=== PATIENT | male | born 1965 | race Caucasian/White ===

== ENCOUNTER 2017-05-25 16:43 | Inpatient (IN) | payer OTHER ==
[2017-05-25 18:30] VITALS: BMI 24.3
--- NOTE | 2017-05-25 19:50 | HP ---
COWS - Scale Resting Pulse: 0= [place] 80 or Below Sweatin= Chills/Flushing Restless Observation: 1= Difficult to Sit Still Pupil Size: 1= Pupils >than Normal Bone or Joint Aches: 2= Severe Diffuse Aches Runny Nose/ Eye Tearin= Runny Nose/Eyes GI Upset > 30mins: 2= Nausea/Diarrhea Tremor Observation: 2= Slight Tremor Visible Yawning Observation: 1= 1-2x During Session Anxiety or Irritability: 2=Irritable/Anxious Goose Flesh Skin: 0=Smooth Skin COWS Score: 14 Admission [facility] Chief Complaint: WITHDRAWAL SX Allergies/Adverse Reactions: Allergies Allergy/AdvReac Type Severity Reaction Status Date / Time risperidone [From Risperdal] Allergy Verified 05/25/17 19:47 History of Present Illness: 52 YEARS OLD MALE WITH LONG HISTORY OF OPIATE NICOTINE COCAINE DEPENDENCE HAS POSITIVE PPD, NEUROPATHY, HYPERTENSION AND SCHIZOPHRENIA IS ADMITTED TO DETOX Exam Limitations: No Limitations - Ebola screening Have you traveled outside of the country in the last 21 days: No (N) Have you had contact with anyone from an Ebola affected area: No Have you been sick,other than usual withdrawal symptoms: No Do you have a fever: No - Review of Systems Constitutional: Loss of Appetite, Changes in sleep, Unintentional Wgt. Loss, Unexplained wgt Loss EENT: reports: No Symptoms Reported Respiratory: reports: No Symptoms reported Cardiac: reports: No Symptoms Reported GI: reports: Nausea, Poor Appetite, Poor Fluid Intake, Indigestion, Abdominal cramping : reports: No Symptoms Reported Musculoskeletal: reports: Back Pain, Joint Pain, Muscle Pain, Neck Pain Integumentary: reports: Rash (LEGS + ARMS) Neuro: reports: Tremors Endocrine: reports: No Symptoms Reported Hematology: reports: No Symptoms Reported Psychiatric: reports: Judgement Intact, Orientated x3, Anxious, Depressed Other Systems: Reviewed and Negative Patient History - Patient Medical History Hx Anemia: No Hx Asthma: No Hx Chronic Obstructive Pulmonary Disease (COPD): No Hx Cancer: No Hx Cardiac Disorders: No Hx Congestive Heart Failure: No Hx Hypertension: Yes Hx Hypercholesterolemia: No Hx Pacemaker: No HX Cerebrovascular Accident: No Hx Seizures: No Hx Dementia: No Hx Diabetes: No Hx Gastrointestinal Disorders: Yes Hx Liver Disease: No Hx Genitourinary Disorders: No Hx Sexually Transmitted Disorders: No Hx Renal Disease (ESRD): No Hx Thyroid Disease: No Hx Human Immunodeficiency Virus (HIV): No Hx Hepatitis C: No Hx Depression: No Hx Suicide Attempt: No Hx Bipolar Disorder: No Hx Schizophrenia: Yes - Patient Surgical History Past Surgical History: Yes Hx Orthopedic Surgery: Yes (RIGHT FACIAL FX) Anesthesia Reaction: No - PPD History Previous Implant?: Yes Documented Results: Positive w/o proof Implanted On Prior [facility] Admission?: No PPD to be Administered?: No - Smoking Cessation Smoking history: Current every day smoker Have you smoked in the past 12 months: Yes Aproximately how many cigarettes per day: 20 Cigars Per Day: 0 Hx Chewing Tobacco Use: No Initiated information on smoking cessation: Yes 'Breaking Loose' booklet given: 05/25/17 - Substance & Tx. History Hx Alcohol Use: No Hx Substance Use: Yes Substance Use Type: Cocaine, Heroin Hx Substance Use Treatment: Yes (2006 [facility]) - Substances Abused Heroin Route: Inhalation Frequency: Daily Amount used: 15 BAGS Age of first use: 22 Date of Last Use: 05/25/17 Family Disease History - Family Disease History Family Disease History: Respiratory: Mother, Sister, Other: Father ( LIVER) Admission Physical Exam [facility] - Vital Signs Vital Signs: Vital Signs - 24 hr 05/25/17 18:22 Temperature 97.5 F L Pulse Rate 66 Respiratory 18 Rate Blood Pressure 150/80 - Physical General Appearance: Yes: Appropriately Dressed, Mild Distress, Thin, Tremorous, Irritable, Sweating, Anxious HEENTM: Yes: Hearing grossly Normal, Normal ENT Inspection, Normocephalic, Normal Voice Respiratory: Yes: Chest Non-Tender, Lungs Clear, Normal Breath Sounds, No Respiratory Distress, No Accessory Muscle Use Neck: Yes: Supple, Trachea in good position Breast: Yes: Breasts Symetrical Cardiology: Yes: Regular Rhythm, Regular Rate, S1, S2 Abdominal: Yes: Non Tender, Soft Genitourinary: Yes: Within Normal Limits Back: Yes: Normal Inspection Musculoskeletal: Yes: full range of Motion, Gait Steady, Back pain, Muscle Pain Extremities: Yes: Normal Range of Motion, Non-Tender, Tremors Neurological: Yes: Fully Oriented, Alert, Motor Strength 5/5, Normal Response, Depressed Affect Integumentary: Yes: Warm, Rash Lymphatic: Yes: Within Normal Limits - Diagnostic (1) Opioid dependence with withdrawal Current Visit: Yes Status: Acute (2) Cocaine dependence, uncomplicated Current Visit: Yes Status: Chronic (3) Positive PPD, treated Current Visit: Yes Status: Resolved (4) Nicotine dependence Current Visit: Yes Status: Acute Qualifiers: Nicotine product type: cigarettes Substance use status: in withdrawal Qualified Code(s): F17.213 - Nicotine dependence, cigarettes, with withdrawal (5) Neuropathy Current Visit: Yes Status: Chronic (6) Hypertension Current Visit: Yes Status: Chronic Qualifiers: Hypertension type: essential hypertension Qualified Code(s): I10 - Essential (primary) hypertension (7) Weight loss Current Visit: Yes Status: Acute (8) GERD (gastroesophageal reflux disease) Current Visit: Yes Status: Chronic Qualifiers: Esophagitis presence: without esophagitis Qualified Code(s): K21.9 - Gastro-esophageal reflux disease without esophagitis Cleared for Admission [facility] - Detox or Rehab S Level of Care: Medically Managed Detox Regimen/Protocol: Methadone S Breath Alcohol Content Breath Alcohol Content: 0 Urine Drug Screen - Results Drug Screen Negative: No Urine Drug Screen Results: SANDRA-Cocaine, OPI-Opiates
[2017-05-25] MEDS ORDERED: P-EPHED 60MG/TRIPROLIDI 2.5MG TABLET PO PRN (19:55)
[2017-05-25] MEDS ORDERED: LOPERAMIDE HCL 2 MG CAPSULE PO PRN (19:55)
[2017-05-25] MEDS ORDERED: ACETAMINOPHEN 325 MG TABLET (FP) PO PRN (19:55)
[2017-05-25] MEDS ORDERED: MAGNESIUM HYDROX 2400MG/30ML ORAL SUSPENSION 30 ML CUP PO PRN (19:55)
[2017-05-25] MEDS ORDERED: MENTHOL/PHENOL 1 EACH UD MM PRN (19:55)
[2017-05-25] MEDS ORDERED: MAG HYDROX/AL HYDROX/SIMETH 30 ML UNIT-DOSE CUP PO PRN (19:55)
[2017-05-25] MEDS ORDERED: MAGNESIUM CITRATE 300 ML BOTTLE PO PRN (19:55)
[2017-05-25] MEDS ORDERED: NICOTINE POLACRILEX 4 MG GUM BUC PRN (19:55)
[2017-05-25] MEDS ORDERED: guaiFENesin/D-METHORPHAN HB 10 ML UNIT-DOSE CUPS PO PRN (19:55)
[2017-05-25] MEDS ORDERED: diphenhydrAMINE HCL 50 MG CAPSULE PO PRN (19:55)
[2017-05-25] MEDS ORDERED: METHADONE HCL 10 MG TABLET (FOR DETOX USE ONLY) PO ONE ×2 (19:55→23:00)
[2017-05-25] MEDS ORDERED: BACITRACIN 0.9 GM PACKET TP ONE (19:58)
[2017-05-25] MEDS: diazePAM 5 MG TABLET PO PRN (20:42)
[2017-05-25] MEDS: VALSARTAN 160 MG TABLET (UD) PO SCH (20:42)
[2017-05-25] MEDS: THIAMINE HCL 100 MG TABLET (FP) PO SCH (22:17)
[2017-05-25] MEDS: CYCLOBENZAPRINE HCL 10 MG TABLET (FP) PO PRN (22:18)
[2017-05-25] MEDS: GABAPENTIN 300 MG CAPSULE (FP) PO SCH (22:18)
[2017-05-25] MEDS: RANITIDINE HCL 150 MG TABLET (FP) PO SCH (22:18)
[2017-05-25 22:38] LABS: URINE APPEARANCE SLCLOUDY; URINE BILIRUBIN NEGATIVE (NEGATIVE); URINE BLOOD NEGATIVE (NEGATIVE); URINE COLOR YELLOW; URINE GLUCOSE (UA) NEGATIVE (NEGATIVE); URINE KETONE NEGATIVE (NEGATIVE); URINE LEUK ESTERASE NEGATIVE (NEGATIVE); URINE NITRITE NEGATIVE (NEGATIVE); URINE PROTEIN NEGATIVE (NEGATIVE)
[2017-05-26] MEDS: GABAPENTIN 300 MG CAPSULE (FP) PO SCH ×3 (06:27→22:30)
[2017-05-26] MEDS ORDERED: METHADONE HCL 10 MG TABLET (FOR DETOX USE ONLY) PO ONE (10:00)
[2017-05-26] MEDS: ASPIRIN 81 MG CHEWABLE TABLETS PO SCH (10:42)
[2017-05-26] MEDS: PRENATAL VITAMINS W/ FOLIC ACID TABLET (FP) PO SCH (10:42)
[2017-05-26] MEDS: RANITIDINE HCL 150 MG TABLET (FP) PO SCH ×2 (10:42→22:30)
[2017-05-26] MEDS: NICOTINE 21 MG/24 HOURS TOPICAL PATCH TD SCH (10:43)
[2017-05-26 10:59] LABS: MCH 32.7 pg (25.7-33.7); MCHC 33.6 g/dl (32.0-35.9); MEAN CELL VOLUME 97.3 fl (80-96); MEAN PLT VOLUME 10.2 fl (7.5-11.1); PLATELET COUNT 174 K/MM3 (134-434); RDW 14.4 % (11.9-15.9); WHITE BLOOD COUNT 5.1 K/mm3 (4.0-10.0)
[2017-05-26 11:11] LABS: ALBUMIN 3.1 g/dl (3.4-5.0); ALK PHOS 107 U/L (45-117); ANION GAP 7 (8-16); BILIRUBIN,TOTAL 0.2 mg/dL (0.2-1.0); CALCIUM 8.2 mg/dL (8.5-10.1); CO2 31 mmol/L (21-32); CREATININE 0.6 mg/dL (0.7-1.3); GLUCOSE,RANDOM 121 mg/dL (74-106); SGOT/AST 11 U/L (15-37); SGPT/ALT 17 U/L (12-78); TOT PROT 5.6 g/dl (6.4-8.2)
--- NOTE | 2017-05-26 12:05 | PN ---
[facility] COWS - Scale Resting Pulse: 0= [place] 80 or Below Sweatin= Chills/Flushing Restless Observation: 3= Extraneous Movement Pupil Size: 1= Pupils >than Normal Bone or Joint Aches: 2= Severe Diffuse Aches Runny Nose/ Eye Tearin= Runny Nose/Eyes GI Upset > 30mins: 3= Vomiting/Diarrhea Tremor Observation of Outstretched Hands: 2= Slight Tremor Visible Yawning Observation: 1= 1-2x During Session Anxiety or Irritability: 2=Irritable/Anxious Goose Flesh Skin: 0=Smooth Skin COWS Score: 17 S Progress Note (SOAP) Subjective: alert,irritable,anxious,interrupted sleep,pain in the body and back,tremor Objective: 05/26/17 12:02 Vital Signs Temperature 97.3 F L 05/26/17 09:51 Pulse Rate 58 L 05/26/17 09:51 Respiratory Rate 18 05/26/17 09:51 Blood Pressure 104/47 05/26/17 09:51 O2 Sat by Pulse Oximetry (%) ekg nsr pac no chest pain,no sob,no dizziness Laboratory Last Values Sodium 144 mmol/L (136-145) 05/26/17 08:00 Potassium 3.5 mmol/L (3.5-5.1) 05/26/17 08:00 Chloride 106 mmol/L (98-107) 05/26/17 08:00 Carbon Dioxide 31 mmol/L (21-32) 05/26/17 08:00 Anion Gap 7 (8-16) L 05/26/17 08:00 BUN 17 mg/dL (7-18) 05/26/17 08:00 Creatinine 0.6 mg/dL (0.7-1.3) L 05/26/17 08:00 Creat Clearance w eGFR > 60 (>60) 05/26/17 08:00 Random Glucose 121 mg/dL (74-106) H 05/26/17 08:00 Calcium 8.2 mg/dL (8.5-10.1) L 05/26/17 08:00 Total Bilirubin 0.2 mg/dL (0.2-1.0) 05/26/17 08:00 AST 11 U/L (15-37) L 05/26/17 08:00 ALT 17 U/L (12-78) 05/26/17 08:00 Alkaline Phosphatase 107 U/L (45-117) 05/26/17 08:00 Total Protein 5.6 g/dl (6.4-8.2) L 05/26/17 08:00 Albumin 3.1 g/dl (3.4-5.0) L 05/26/17 08:00 Urine Color Yellow 05/25/17 21:45 Urine Appearance Slcloudy 05/25/17 21:45 Urine pH 5.0 (5.0-8.0) 05/25/17 21:45 Ur Specific [place] 1.025 (1.005-1.025) 05/25/17 21:45 Urine Protein Negative (NEGATIVE) 05/25/17 21:45 Urine Glucose (UA) Negative (NEGATIVE) 05/25/17 21:45 Urine Ketones Negative (NEGATIVE) 05/25/17 21:45 Urine Blood Negative (NEGATIVE) 05/25/17 21:45 Urine Nitrite Negative (NEGATIVE) 05/25/17 21:45 Urine Bilirubin Negative (NEGATIVE) 05/25/17 21:45 Urine Urobilinogen 2.0 mg/dL (0.2-1.0) 05/25/17 21:45 Ur Leukocyte Esterase Negative (NEGATIVE) 05/25/17 21:45 labs pending Assessment: 05/26/17 12:04 withdrawal symptom Plan: continue detox,fasting glucose in am initial glucose is 121
[2017-05-26] MEDS: VALSARTAN 160 MG TABLET (UD) PO SCH (12:42)
--- NOTE | 2017-05-26 18:44 | EKG ---
Test Reason : Blood Pressure : / mmHG Vent. Rate : 063 BPM Atrial Rate : 063 BPM P-R Int : 146 ms QRS Dur : 112 ms QT Int : 386 ms P-R-T Axes : 079 -20 030 degrees QTc Int : 395 ms SINUS RHYTHM WITH PREMATURE ATRIAL COMPLEXES INCOMPLETE RIGHT BUNDLE BRANCH BLOCK BORDERLINE ECG NO PREVIOUS ECGS AVAILABLE Confirmed by MARY ANN DE JESUS MD ([id number]) on 05/26/2017 6:44:41 PM Referred By: Confirmed By:MARY ANN DE JESUS MD
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
[2017-05-26] MEDS: THIAMINE HCL 100 MG TABLET (FP) PO SCH (22:30)
[2017-05-26] MEDS: MIRTAZAPINE 15 MG TABLET (FP) PO SCH (22:30)
[2017-05-26] MEDS: diazePAM 5 MG TABLET PO PRN (22:32)
[2017-05-27] MEDS: GABAPENTIN 300 MG CAPSULE (FP) PO SCH ×3 (06:24→22:29)
[2017-05-27] MEDS ORDERED: METHADONE HCL 5 MG TABLET (FOR DETOX USE ONLY) PO ONE (10:00)
[2017-05-27] MEDS: ASPIRIN 81 MG CHEWABLE TABLETS PO SCH (10:37)
[2017-05-27] MEDS: RANITIDINE HCL 150 MG TABLET (FP) PO SCH ×2 (10:37→22:29)
[2017-05-27] MEDS: diazePAM 5 MG TABLET PO PRN (10:38)
[2017-05-27] MEDS: PRENATAL VITAMINS W/ FOLIC ACID TABLET (FP) PO SCH (10:38)
[2017-05-27] MEDS: VALSARTAN 160 MG TABLET (UD) PO SCH (10:38)
[2017-05-27] MEDS: CYCLOBENZAPRINE HCL 10 MG TABLET (FP) PO PRN (10:38)
[2017-05-27] MEDS: NICOTINE 21 MG/24 HOURS TOPICAL PATCH TD SCH (10:41)
--- NOTE | 2017-05-27 12:22 | PN ---
S COWS - Scale Resting Pulse: 0= [place] 80 or Below Sweatin= Chills/Flushing Restless Observation: 3= Extraneous Movement Pupil Size: 1= Pupils >than Normal Bone or Joint Aches: 2= Severe Diffuse Aches Runny Nose/ Eye Tearin= Runny Nose/Eyes GI Upset > 30mins: 2= Nausea/Diarrhea Tremor Observation of Outstretched Hands: 2= Slight Tremor Visible Yawning Observation: 1= 1-2x During Session Anxiety or Irritability: 2=Irritable/Anxious Goose Flesh Skin: 0=Smooth Skin COWS Score: 16 S Progress Note (SOAP) Subjective: ALERT,IRRITABLE,ANXIOUS,INTERRUPTED SLEEP,PAIN IN THE BODY AND BACK Objective: 05/27/17 12:21 Vital Signs Temperature 97.3 F L 05/27/17 10:36 Pulse Rate 63 05/27/17 10:36 Respiratory Rate 18 05/27/17 10:36 Blood Pressure 147/59 05/27/17 10:36 O2 Sat by Pulse Oximetry (%) Lab Results WBC 5.1 K/mm3 (4.0-10.0) 05/26/17 08:00 RBC 3.75 M/mm3 (4.00-5.60) L 05/26/17 08:00 Hgb 12.3 GM/dL (11.7-16.9) 05/26/17 08:00 Hct 36.5 % (35.4-49) 05/26/17 08:00 MCV 97.3 fl (80-96) H 05/26/17 08:00 MCHC 33.6 g/dl (32.0-35.9) 05/26/17 08:00 RDW 14.4 % (11.9-15.9) 05/26/17 08:00 Plt Count 174 K/MM3 (134-434) 05/26/17 08:00 Sodium 144 mmol/L (136-145) 05/26/17 08:00 Potassium 3.5 mmol/L (3.5-5.1) 05/26/17 08:00 Chloride 106 mmol/L (98-107) 05/26/17 08:00 Carbon Dioxide 31 mmol/L (21-32) 05/26/17 08:00 Anion Gap 7 (8-16) L 05/26/17 08:00 BUN 17 mg/dL (7-18) 05/26/17 08:00 Creatinine 0.6 mg/dL (0.7-1.3) L 05/26/17 08:00 Random Glucose 121 mg/dL (74-106) H 05/26/17 08:00 Calcium 8.2 mg/dL (8.5-10.1) L 05/26/17 08:00 LABS PENDING Assessment: 05/27/17 12:22 WITHDRAWAL SYMPTOM Plan: CONTINUE DETOX
[2017-05-27] MEDS: MIRTAZAPINE 15 MG TABLET (FP) PO SCH (22:29)
[2017-05-27] MEDS: THIAMINE HCL 100 MG TABLET (FP) PO SCH (22:29)
[2017-05-28] MEDS: GABAPENTIN 300 MG CAPSULE (FP) PO SCH ×3 (05:13→22:09)
[2017-05-28] MEDS ORDERED: METHADONE HCL 5 MG TABLET (FOR DETOX USE ONLY) PO ONE (10:00)
[2017-05-28] MEDS: VALSARTAN 160 MG TABLET (UD) PO SCH (10:21)
[2017-05-28] MEDS: ASPIRIN 81 MG CHEWABLE TABLETS PO SCH (10:21)
[2017-05-28] MEDS: PRENATAL VITAMINS W/ FOLIC ACID TABLET (FP) PO SCH (10:21)
[2017-05-28] MEDS: RANITIDINE HCL 150 MG TABLET (FP) PO SCH ×2 (10:21→22:09)
[2017-05-28] MEDS: NICOTINE 21 MG/24 HOURS TOPICAL PATCH TD SCH (10:22)
--- NOTE | 2017-05-28 11:22 | PN ---
S Progress Note (SOAP) Subjective: ALERT,IRRITABLE,ANXIOUS,PAIN IN THE BODY AND BACK,TREMOR Objective: 05/28/17 11:21 Vital Signs Temperature 97.5 F L 05/28/17 10:37 Pulse Rate 63 05/28/17 10:37 Respiratory Rate 18 05/28/17 10:37 Blood Pressure 139/93 05/28/17 10:37 O2 Sat by Pulse Oximetry (%) Assessment: 05/28/17 11:22 WITHDRAWAL SYMPTOM Plan: CONTINUE DETOX
[2017-05-28] MEDS: THIAMINE HCL 100 MG TABLET (FP) PO SCH (22:08)
[2017-05-28] MEDS: CYCLOBENZAPRINE HCL 10 MG TABLET (FP) PO PRN (22:09)
[2017-05-28] MEDS: MIRTAZAPINE 15 MG TABLET (FP) PO SCH (22:09)
[2017-05-29] MEDS: GABAPENTIN 300 MG CAPSULE (FP) PO SCH ×3 (05:17→22:09)
[2017-05-29] MEDS ORDERED: METHADONE HCL 10 MG TABLET (FOR DETOX USE ONLY) PO ONE (10:00)
--- NOTE | 2017-05-29 10:06 | PN ---
S Progress Note (SOAP) Subjective: ALERT,IRRITABLE,ANXIOUS,INTERRUPTED SLEEP Objective: 05/29/17 10:05 Vital Signs Temperature 97.3 F L 05/29/17 09:23 Pulse Rate 72 05/29/17 09:23 Respiratory Rate 18 05/29/17 09:23 Blood Pressure 120/63 05/29/17 09:23 O2 Sat by Pulse Oximetry (%) Assessment: 05/29/17 10:05 WITHDRAWAL SYMPTOM Plan: CONTINUE DETOX
[2017-05-29] MEDS: ASPIRIN 81 MG CHEWABLE TABLETS PO SCH (10:10)
[2017-05-29] MEDS: PRENATAL VITAMINS W/ FOLIC ACID TABLET (FP) PO SCH (10:11)
[2017-05-29] MEDS: VALSARTAN 160 MG TABLET (UD) PO SCH (10:11)
[2017-05-29] MEDS: NICOTINE 21 MG/24 HOURS TOPICAL PATCH TD SCH (10:11)
[2017-05-29] MEDS: RANITIDINE HCL 150 MG TABLET (FP) PO SCH ×2 (10:11→22:10)
[2017-05-29 21:22] VITALS: BP 134/78; PULSE 76; TEMP 97.6
[2017-05-29] MEDS: CYCLOBENZAPRINE HCL 10 MG TABLET (FP) PO PRN (22:09)
[2017-05-29] MEDS: MIRTAZAPINE 15 MG TABLET (FP) PO SCH (22:09)
[2017-05-29] MEDS: THIAMINE HCL 100 MG TABLET (FP) PO SCH (22:09)
[2017-05-30] MEDS: GABAPENTIN 300 MG CAPSULE (FP) PO SCH (05:55)
[2017-05-30] MEDS ORDERED: METHADONE HCL 5 MG TABLET (FOR DETOX USE ONLY) PO ONE (06:00)
--- NOTE | 2017-05-30 09:49 | DS ---
[facility] Detox Discharge Summary Admission Date: 05/25/17 Discharge Date: 05/30/17 - History Present History: Cocaine Dependence, Opioid Dependence Additional Comments: follow up with after care program as arrangement Pertinent Past History: hypertension gerd nicotine dependence nicotine dependence weight loss neuropathy positive ppd treated - Physical Exam Results Vital Signs: Vital Signs Temperature 97.6 F 05/29/17 21:22 Pulse Rate 76 05/29/17 21:22 Respiratory Rate 18 05/29/17 21:22 Blood Pressure 134/78 05/29/17 21:22 O2 Sat by Pulse Oximetry (%) Pertinent Admission Physical Exam Findings: withdrawal symptom - Treatment Hospital Course: Detox Protocol Followed, Detoxed Safely, Responded well, Discharged Condition Good, Rehab Referral Accepted Patient has Accepted a Rehab Referral to: [facility] - Medication Discharge Medications: Ambulatory Orders Gabapentin [Neurontin -] 300 mg PO TID 05/25/17 Mirtazapine [Remeron -] 30 mg PO DAILY 05/25/17 Valsartan [Diovan] 160 mg PO DAILY 05/25/17 Mirtazapine [Remeron -] 15 mg PO HS #30 tablet 05/26/17 - Diagnosis (1) Cocaine dependence, uncomplicated Current Visit: Yes Status: Acute (2) Insomnia Current Visit: Yes Status: Acute (3) Nicotine dependence Current Visit: Yes Status: Acute Qualifiers: Nicotine product type: cigarettes Substance use status: in withdrawal Qualified Code(s): F17.213 - Nicotine dependence, cigarettes, with withdrawal (4) Opioid dependence with withdrawal Current Visit: Yes Status: Acute (5) Substance induced mood disorder Current Visit: Yes Status: Acute (6) GERD (gastroesophageal reflux disease) Current Visit: Yes Status: Chronic Qualifiers: Esophagitis presence: without esophagitis Qualified Code(s): K21.9 - Gastro-esophageal reflux disease without esophagitis (7) Hypertension Current Visit: Yes Status: Chronic Qualifiers: Hypertension type: essential hypertension Qualified Code(s): I10 - Essential (primary) hypertension (8) Neuropathy Current Visit: Yes Status: Chronic (9) Weight loss Current Visit: Yes Status: Chronic (10) Positive PPD, treated Current Visit: Yes Status: Resolved - AMA Did Patient Leave Against Medical Advice: No
== END 2017-05-30 10:15 | disposition home or self-care (01) | DRG 773 ==
LOC: YASAS 16:43 → Y6N 19:47
PROVIDERS: ADMIT Internal Medicine; ATTEND Internal Medicine
PROC: HZ2ZZZZ Detoxification Services for Substance Abuse Treatment (ICD-10-PCS; principal; 2017-05-30)
DX: F11.23 Opioid dependence with withdrawal (principal); F14.20 Cocaine dependence, uncomplicated; F17.213 Nicotine dependence, cigarettes, with withdrawal; F19.24 Other psychoactive substance dependence with psychoactive substance-induced mood disorder; G47.00 Insomnia, unspecified; G62.9 Polyneuropathy, unspecified; I10 Essential (primary) hypertension; K21.9 Gastro-esophageal reflux disease without esophagitis; R76.11 Nonspecific reaction to tuberculin skin test without active tuberculosis; R63.4 Abnormal weight loss; Z68.24 Body mass index [BMI] 24.0-24.9, adult
CPT/HCPCS: 36415; 71020-TC; 80053; 81003; 82947; 85027; 86593; 86803; 93005; 93010